=== PATIENT | female | born 1980 | race Caucasian/White ===

== ENCOUNTER → 2017-03-28 | Outpatient (CLI) | payer OTHER | LOC: FIMAGING 09:35 | PROVIDERS: ATTEND Obstetrics & Gynecology | DX: O09.522 Supervision of elderly multigravida, second trimester (principal); Z3A.18 18 weeks gestation of pregnancy ==

== ENCOUNTER → 2018-04-17 | Outpatient (CLI) | payer OTHER | LOC: BMCIMAGING 08:48 | PROVIDERS: ATTEND Family Medicine | DX: R10.13 Epigastric pain (principal) ==